=== PATIENT | female | born 1975 | race African-American/Black ===

== ENCOUNTER 2016-08-31 07:03 | Emergency (ER) | payer BC, MEDICARE ==
[~2016-08-31] VITALS: Ht 167.6 cm; Wt 72.6 kg
[~2016-08-31 07:03] MED LIST: HYDR-548 PO; OXYC-133 PO
[2016-08-31] MEDS ORDERED: IV NORMAL SALINE 1000 ML BAG IV ONE (08:15)
[2016-08-31] MEDS ORDERED: diphenhydrAMINE 50 MG/1 ML VIAL IV ONE (08:15)
[2016-08-31] MEDS ORDERED: KETOROLAC TROMETHAMINE 30 MG INJ IVP ONE (08:15)
[2016-08-31] MEDS ORDERED: METOCLOPRAMIDE HCL 10 MG/2 ML VIAL IV ONE (08:15)
[2016-08-31 08:27] LABS: BASOPHILS # (AUTO) 0.2 K/uL (0.0-8.0); BASOPHILS % (AUTO) 1.8 % (0.0-2.0); EOSINOPHILS # (AUTO) 0.1 K/uL (0.0-0.7); EOSINOPHILS % (AUTO) 0.6 % (0.0-7.0); HEMATOCRIT 39.7 % (37-47); HEMOGLOBIN 13.6 G/DL (12.0-16.0); LYMPHOCYTES # (AUTO) 1.5 K/UL (0.8-4.8); LYMPHOCYTES % (AUTO) 13.3 % (20.5-51.5); MEAN CORPUSCULAR HEMOGLOBIN 31.8 UUG (27.0-31.0); MEAN CORPUSCULAR HGB CONC 34 g/dL (32.0-37.0); MEAN CORPUSCULAR VOLUME 92.6 FL (81.0-99.0); MONOCYTES # (AUTO) 1.1 K/UL (0.1-1.30); MONOCYTES % (AUTO) 10.1 % (0.0-11.0); NEUTROPHILS # (AUTO) 8.3 K/UL (1.8-8.9); NEUTROPHILS % (AUTO) 74.2 % (38.5-71.5); PLATELET COUNT (AUTO) 308 K/UL (150-450); RED BLOOD CELL COUNT(AUTO) 4.28 MIL/UL (4.2-5.4); WHITE BLOOD COUNT (AUTO) 11.2 K/UL (4.0-11.2)
[2016-08-31 08:45] LABS: BILIRUBIN,DIRECT 0.1 mg/dL (0.0-0.2); BILIRUBIN,TOTAL 0.3 mg/dL (0.2-1.0); CREATININE 0.8 mg/dL (0.6-1.3); POTASSIUM 4.6 mmol/L (3.5-5.1); TOTAL PROTEIN, SERUM 7.9 g/dL (6.4-8.2)
--- NOTE | 2016-08-31 09:01 | NUR ---
Patient is resting comfortably on gurney while using her cellphone, NAD,pending urine specimen still
[2016-08-31] MEDS ORDERED: HYDROMORPHONE 1 MG/1 ML DISP.SYRIN IV ONE ×2 (09:30→10:45)
[2016-08-31] MEDS ORDERED: ONDANSETRON 4 MG/2 ML VIAL IV ONE (09:45)
--- NOTE | 2016-08-31 10:10 | NUR ---
Patient ambulated with steady gait to the bathroom & expressed " When will the drugs work?" Patient wants more pain medicines- MD notified.
[2016-08-31 10:18] LABS: *BILIRUBIN,URIN NEGATIVE (NEGATIVE); *BLOOD, URINE NEGATIVE (NEGATIVE); *CLARITY,URINE CLEAR (CLEAR); *COLOR,URINE YELLOW (YELLOW); *KETONES,URINE NEGATIVE (NEGATIVE); *PROTEIN,URINE NEGATIVE (NEGATIVE); LEUKOCYTE ESTERASE ,URINE NEGATIVE (NEGATIVE); NITRITE, URINE NEGATIVE (NEGATIVE); PH,URINE 7.5 (5.0-8.0); UGLUCOSE NEGATIVE (NEGATIVE)
[2016-08-31 10:29] LABS: BACTERIA,URINE FEW /HPF (NONE SEEN); SQUAMOUS EPITHELIAL CELL,UR FEW /HPF (NONE SEEN)
--- NOTE | 2016-08-31 10:54 | NUR ---
IV removed@[id number]. Catheter intact and site benign. Pressure and 4x4 gauze applied to site. No bleeding noted. Patient says that she will "uber" home. Patient discharged to home in stable conditon. Written and verbal after care instructions given to aptient with referrals to neurology & pain specialist. Patient verbalizes understanding of instructions.
--- NOTE | 2016-08-31 10:55 | NUR ---
Patient requested Amber flower MD notified.
== END 2016-08-31 11:00 | disposition home or self-care (01) ==
LOC: ER 07:03
DX: G43.909 Migraine, unspecified, not intractable, without status migrainosus (principal); R11.10 Vomiting, unspecified; R19.7 Diarrhea, unspecified; R10.9 Unspecified abdominal pain; F17.210 Nicotine dependence, cigarettes, uncomplicated; Z88.6 Allergy status to analgesic agent
CPT/HCPCS: 36415; 83690; 84703; 85025; A4663; J1170; J1200; J1885; J2405; J2765; J3490; J7030

== ENCOUNTER 2016-09-10 23:43 | Emergency (ER) | payer BC, MEDICARE ==
[~2016-09-10] VITALS: Ht 167.6 cm; Wt 77.1 kg
[2016-09-11] MEDS ORDERED: HYDROMORPHONE 1 MG/1 ML DISP.SYRIN IM ONE (00:15)
[2016-09-11] MEDS ORDERED: HYDROMORPHONE 1 MG/1 ML DISP.SYRIN ONE (00:26)
--- NOTE | 2016-09-11 00:26 | NUR ---
Patient discharged to home in stable conditon. Written and verbal after care instructions given. Patient verbalizes understanding of instructions.
[2016-09-11] MEDS ORDERED: TOPAMAX PO (16:56)
== END 2016-09-11 00:27 | disposition home or self-care (01) ==
LOC: ER 23:48
DX: S61.211A Laceration without foreign body of left index finger without damage to nail, initial encounter (principal); F10.20 Alcohol dependence, uncomplicated; F17.210 Nicotine dependence, cigarettes, uncomplicated; Z88.6 Allergy status to analgesic agent; Z90.49 Acquired absence of other specified parts of digestive tract; W26.0XXA Contact with knife, initial encounter; Y93.89 Activity, other specified; Y99.8 Other external cause status; Y92.89 Other specified places as the place of occurrence of the external cause
CPT/HCPCS: A4663; J1170

== ENCOUNTER 2016-09-11 14:51 | Inpatient (IN) | payer BC, MEDICARE ==
[~2016-09-11] VITALS: Ht 167.6 cm; Wt 76.7 kg
[2016-09-11] MEDS ORDERED: IV NORMAL SALINE 1000 ML BAG IV ONE (15:30)
[2016-09-11] MEDS ORDERED: ONDANSETRON IV *ER 4 MG/2 ML VIAL IV ONE (15:30)
[2016-09-11] MEDS ORDERED: ONDANSETRON 4 MG/2 ML VIAL ONE (15:34)
[2016-09-11 15:41] LABS: BASOPHILS % (AUTO) 0.1 % (0.0-2.0); EOSINOPHILS # (AUTO) 0.1 K/uL (0.0-0.7); EOSINOPHILS % (AUTO) 0.9 % (0.0-7.0); HEMATOCRIT 37.3 % (37-47); HEMOGLOBIN 12.8 G/DL (12.0-16.0); LYMPHOCYTES # (AUTO) 1.5 K/UL (0.8-4.8); LYMPHOCYTES % (AUTO) 10.4 % (20.5-51.5); MEAN CORPUSCULAR HEMOGLOBIN 31.6 UUG (27.0-31.0); MEAN CORPUSCULAR HGB CONC 34 g/dL (32.0-37.0); MEAN CORPUSCULAR VOLUME 92.2 FL (81.0-99.0); MONOCYTES # (AUTO) 1.4 K/UL (0.1-1.30); MONOCYTES % (AUTO) 9.5 % (0.0-11.0); NEUTROPHILS # (AUTO) 11.6 K/UL (1.8-8.9); NEUTROPHILS % (AUTO) 79.1 % (38.5-71.5); PLATELET COUNT (AUTO) 341 K/UL (150-450); RED BLOOD CELL COUNT(AUTO) 4.05 MIL/UL (4.2-5.4); WHITE BLOOD COUNT (AUTO) 14.6 K/UL (4.0-11.2)
[2016-09-11] MEDS ORDERED: HYDROMORPHONE 1 MG/1 ML DISP.SYRIN IV ONE ×2 (15:45→18:00)
[2016-09-11 15:49] LABS: POTASSIUM 4.1 mmol/L (3.5-5.1)
[2016-09-11 15:55] LABS: BILIRUBIN,DIRECT 0.1 mg/dL (0.0-0.2); BILIRUBIN,TOTAL 0.3 mg/dL (0.2-1.0)
[2016-09-11] MEDS ORDERED: HYDROMORPHONE 2 MG/1 ML DISP.SYRIN ONE (16:00)
[2016-09-11] MEDS ORDERED: IOHEXOL 300MG/ML 100 ML INFUS..BTL ONE (16:26)
[2016-09-11] MEDS ORDERED: NORMAL SALINE FLUSH 10 ML DISP.SYRIN ONE (16:26)
[2016-09-11] MEDS ORDERED: IV NORMAL SALINE 250 ML IV ONE (16:26)
[2016-09-11] MEDS ORDERED: DICYCLOMINE HCL 20 MG/2 ML AMPUL IM STA (16:31)
[2016-09-11] MEDS ORDERED: FAMOTIDINE. 20 MG/2 ML VIAL IV ONE ×2 (16:45→16:47)
[2016-09-11] MEDS ORDERED: MAG HYDROX/AL HYDROX/SIMETH 30 ML LIQUID UDC PO ONE (16:45)
[2016-09-11] MEDS ORDERED: PANTOPRAZOLE SODIUM 40 MG VIAL IV ONE (16:45)
[2016-09-11] MEDS ORDERED: PANTOPRAZOLE SODIUM 40 MG VIAL ONE (16:47)
[2016-09-11] MEDS ORDERED: MAG HYDROX/AL HYDROX/SIMETH 30 ML LIQUID UDC ONE (16:47)
[2016-09-11] MEDS ORDERED: TOPAMAX PO (16:56)
[2016-09-11] MEDS ORDERED: HALOPERIDOL LACTATE 5 MG/1 ML VIAL IV ONE ×2 (17:00→18:30)
[2016-09-11] MEDS ORDERED: HALOPERIDOL LACTATE 5 MG/1 ML VIAL ONE ×2 (17:05→18:32)
--- NOTE | 2016-09-11 17:48 | NUR ---
BELONGIGN LIST MADE. PT GUILLE THAT LATER HER FAMILY MEMBER IS COMING AND WILL BE TAKING THE PT BAG WITH ITS BELONGING HOME.
--- NOTE | 2016-09-11 18:00 | NUR ---
CHRISTINE MONTOYA AT BEDSIDE.
[2016-09-11] MEDS ORDERED: HYDROMORPHONE 1 MG/1 ML DISP.SYRIN ONE (18:14)
[2016-09-11] MEDS ORDERED: OXYCODONE/APAP 5-325 MG TABLET PO ONE (18:30)
--- NOTE | 2016-09-11 18:34 | NUR ---
PT TRANSFERED TO FLOOR IN STABLE CONDITION
--- NOTE | 2016-09-11 18:37 | NUR ---
WHILE IN ER, PT CONSTANTLY ASKING FOR PAIN MEDICATION, AWARE.
[2016-09-11 18:45] VITALS: BP 91/64
--- NOTE | 2016-09-11 19:30 | NUR ---
PATIENT IN BED, SLEEPING AT THIS TIME BUT AROUSABLE. DAUGHTER AT BEDSIDE. NO ACUTE DISTRESS NOTED. NEEDS ATTENDED. CALL LIGHT WITHIN REACH. WILL CONTINUE TO MONITOR
[2016-09-11] MEDS ORDERED: ACETAMINOPHEN 650 MG SUPP.RECT RC PRN (19:45)
[2016-09-11] MEDS ORDERED: LORAZEPAM 2 MG/1 ML VIAL IV PRN (19:45)
[2016-09-11 20:00] VITALS: BP 97/62
--- NOTE | 2016-09-11 20:30 | NUR ---
ALERT BUT SLEEPY, ABLE TO ANSWER QUESTIONS, ABLE TO PROVIDE HISTORY. BODY ASSESSMENT DONE. WILL CONTINUE TO MONITOR
[2016-09-11] MEDS: PIPERACILLIN/TAZOBACTAM/D5W 3.375 G in PREMIXED 1 EACH IV SCH ×2 (21:03→23:04)
[2016-09-11] MEDS: HYDROMORPHONE 1 MG/1 ML DISP.SYRIN IV PRN (21:04)
[2016-09-11] MEDS: IV D5/ 0.9% NACL 1,000 ML IV PRN (21:04)
[2016-09-11] MEDS: ONDANSETRON 4 MG/2 ML VIAL IV PRN (21:04)
[2016-09-12] MEDS: HYDROMORPHONE 1 MG/1 ML DISP.SYRIN IV PRN ×2 (05:22→08:32)
[2016-09-12] MEDS: ONDANSETRON 4 MG/2 ML VIAL IV PRN (06:09)
[2016-09-12] MEDS: PIPERACILLIN/TAZOBACTAM/D5W 3.375 G in PREMIXED 1 EACH IV SCH ×2 (06:09→13:14)
[2016-09-12 06:18] VITALS: BP 85/51
[2016-09-12] MEDS ORDERED: IV NORMAL SALINE 500 ML IV ONE (06:30)
--- NOTE | 2016-09-12 06:39 | NUR ---
NOTED LOW BP OF 85/51. LOWER EXTREMITIES ELEVATED. MD MADE AWARE WITH ORDERS. PAIN CONTROLLED WITH MEDICATION ORDERED. NEEDS ATTENDED. CALL LIGHT WITHIN REACH
[2016-09-12 06:57] LABS: BASOPHILS % (AUTO) 0.1 % (0.0-2.0); EOSINOPHILS # (AUTO) 0.2 K/uL (0.0-0.7); EOSINOPHILS % (AUTO) 3.4 % (0.0-7.0); HEMATOCRIT 34.6 % (37-47); HEMOGLOBIN 11.8 G/DL (12.0-16.0); LYMPHOCYTES # (AUTO) 1.1 K/UL (0.8-4.8); LYMPHOCYTES % (AUTO) 16.2 % (20.5-51.5); MEAN CORPUSCULAR HEMOGLOBIN 31.6 UUG (27.0-31.0); MEAN CORPUSCULAR HGB CONC 34 g/dL (32.0-37.0); MEAN CORPUSCULAR VOLUME 92.9 FL (81.0-99.0); MONOCYTES # (AUTO) 0.7 K/UL (0.1-1.30); MONOCYTES % (AUTO) 9.5 % (0.0-11.0); NEUTROPHILS # (AUTO) 4.9 K/UL (1.8-8.9); NEUTROPHILS % (AUTO) 70.8 % (38.5-71.5); PLATELET COUNT (AUTO) 293 K/UL (150-450); RED BLOOD CELL COUNT(AUTO) 3.72 MIL/UL (4.2-5.4)
[2016-09-12 07:15] LABS: WHITE BLOOD COUNT (AUTO) 6.9 K/UL (4.0-11.2)
[2016-09-12 07:26] LABS: CREATININE 0.7 mg/dL (0.6-1.3); MAGNESIUM 2.4 mg/dL (1.8-2.4); PHOSPHOROUS 3.9 mg/dL (2.5-4.9); POTASSIUM 3.6 mmol/L (3.5-5.1); TOTAL PROTEIN, SERUM 6.3 g/dL (6.4-8.2)
[2016-09-12 07:33] LABS: *BILIRUBIN,URIN NEGATIVE (NEGATIVE); *BLOOD, URINE NEGATIVE (NEGATIVE); *CLARITY,URINE CLEAR (CLEAR); *COLOR,URINE YELLOW (YELLOW); *KETONES,URINE NEGATIVE (NEGATIVE); *PROTEIN,URINE NEGATIVE (NEGATIVE); *UROBILINOGEN,URINE 0.2 E.U./dl (NORMAL); LEUKOCYTE ESTERASE ,URINE NEGATIVE (NEGATIVE); NITRITE, URINE NEGATIVE (NEGATIVE); UGLUCOSE NEGATIVE (NEGATIVE)
[2016-09-12 08:27] VITALS: BP 94/56
[2016-09-12 08:31] LABS: BACTERIA,URINE NONE SEEN /HPF (NONE SEEN); RBC,URINE 0-3 /HPF (0-3); WBC,URINE NONE SEEN /HPF (0-3)
[2016-09-12 08:32] LABS: SQUAMOUS EPITHELIAL CELL,UR FEW /HPF (NONE SEEN)
[2016-09-12] MEDS ORDERED: PANTOPRAZOLE SODIUM 40 MG VIAL IV SCH (09:00)
[2016-09-12] MEDS: IV D5/ 0.9% NACL 1,000 ML IV PRN (11:37)
[2016-09-12 12:04] VITALS: BP 86/50
[2016-09-12 13:18] VITALS: BP 88/59
--- NOTE | 2016-09-12 13:22 | NUR ---
AWARE OF LOW BP. NEW PARAMETERS FOR GIVING DILAUDID; SBP >100. PT. APPEARS CALM AND QUIET AND SLEEPING ALL OF SHIFT. OOB TO BR WITH STEADY GAIT. SHE C/O BURNING/SHARP PAIN IN MID ABDOMEN BUT STATES SHE IS FEELING VERY HUNGRY. SHE REQUESTS FOOD. WILL NOTIFY MD. Addendum: 09/12/16 at 1334 by DONTA JASON RN CORRECT ERROR NEW PARAMETERS FOR GIVING DILAUDID; SBP >90.
[2016-09-12] MEDS ORDERED: HYDROMORPHONE 1 MG/1 ML DISP.SYRIN IV PRN (13:45)
[2016-09-12 14:46] VITALS: BP 93/54
--- NOTE | 2016-09-12 15:16 | NUR ---
PT. HAD A CUP OF PUDDING, JELLO AND CRANBERRY JUICE. SHE STATED SHE ATE TOO FAST AND THEREFORE HAD A SMALL AMOUNT OF EMESIS AND SOME NAUSEA. NOW FEELING BETTER. DILAUDID GIVEN PER MAR. BP > 90. SHE ALSO ASKED IF SHE POTENTIALLY COULD GO HOME TODAY. WILL FOLLOW WITH .
[2016-09-12 16:02] VITALS: BP 92/43
--- NOTE | 2016-09-12 17:31 | NUR ---
PT. NOTIFIED OF DISCHARGE PAPERS READY. PT. STATES ABD 05/17. PT. STATES NECK PAIN AND HEAD ACHE IS GONE. SHE TOLERATED DINNER.
--- NOTE | 2016-09-12 17:55 | NUR ---
PT GIVEN DISCHARGE INSTRUCTIONS AND VERBALIZED UNDERSTANDING. PT. HAS ALL BELONGNIGS- CHECKED WITH FAMILY. PT. AMBULATED OFF UNIT TO HER CAR AND REFUSED ESCORT.
== END 2016-09-12 17:55 | disposition home or self-care (01) | DRG 392 ==
LOC: ER 14:58 → MED 18:24
PROVIDERS: ADMIT Internal Medicine; ATTEND Internal Medicine
DX: A08.4 Viral intestinal infection, unspecified (principal); G89.4 Chronic pain syndrome; D64.9 Anemia, unspecified; E66.9 Obesity, unspecified; F31.9 Bipolar disorder, unspecified; J45.909 Unspecified asthma, uncomplicated; Z79.891 Long term (current) use of opiate analgesic; Z98.84 Bariatric surgery status; F17.200 Nicotine dependence, unspecified, uncomplicated; K29.70 Gastritis, unspecified, without bleeding; R51 Headache; Z90.49 Acquired absence of other specified parts of digestive tract; Z88.5 Allergy status to narcotic agent; F41.9 Anxiety disorder, unspecified; K21.9 Gastro-esophageal reflux disease without esophagitis
CPT/HCPCS: 36415; 83550; 83605; 83690; 83735; 84100; 84703; 85025; 86140; 87086; C9113; J0500; J1170; J1630; J2405; J2543; J3490; J7040; J7042; J7050; Q9967

== ENCOUNTER 2017-03-03 23:41 | Emergency (ER) | payer BC, MEDICARE ==
[~2017-03-03] VITALS: Ht 170.2 cm; Wt 89.8 kg
[~2017-03-03 23:41] MED LIST changes: +TOPAMAX PO
[2017-03-04] MEDS ORDERED: ONDANSETRON 4 MG/2 ML VIAL IV ONE (00:30)
[2017-03-04] MEDS ORDERED: IV NORMAL SALINE 1000 ML BAG IV ONE (00:30)
[2017-03-04] MEDS ORDERED: CEFTRIAXONE 1 G in IV DEXTROSE 5% 50 ML IV ONE (00:30)
[2017-03-04] MEDS ORDERED: METOCLOPRAMIDE HCL 10 MG/2 ML VIAL IV ONE (00:30)
[2017-03-04 00:50] LABS: BASOPHILS % (AUTO) 0.7 % (0.0-2.0); EOSINOPHILS # (AUTO) 0.1 K/uL (0.0-0.7); EOSINOPHILS % (AUTO) 2.2 % (0.0-7.0); HEMATOCRIT 38.4 % (31.2-41.9); HEMOGLOBIN 13.2 g/dL (10.9-14.3); LYMPHOCYTES # (AUTO) 1.7 K/uL (20.0-40.0); LYMPHOCYTES % (AUTO) 30.4 % (20.5-51.5); MEAN CORPUSCULAR HEMOGLOBIN 32.1 uug (24.7-32.8); MEAN CORPUSCULAR HGB CONC 34 g/dL (32.3-35.6); MEAN CORPUSCULAR VOLUME 93.4 fL (75.5-95.3); MONOCYTES # (AUTO) 0.6 K/uL (2.0-10.0); MONOCYTES % (AUTO) 9.9 % (0.0-11.0); NEUTROPHILS # (AUTO) 3.2 K/uL (1.8-8.9); NEUTROPHILS % (AUTO) 56.8 % (38.5-71.5); PLATELET COUNT (AUTO) 302 K/uL (179-408); RED BLOOD CELL COUNT(AUTO) 4.11 MIL/uL (3.63-4.92); WHITE BLOOD COUNT (AUTO) 5.6 K/uL (3.8-11.8)
[2017-03-04] MEDS ORDERED: ONDANSETRON 4 MG/2 ML VIAL ONE (00:52)
[2017-03-04] MEDS ORDERED: METOCLOPRAMIDE HCL 10 MG/2 ML VIAL ONE (00:52)
[2017-03-04] MEDS ORDERED: CEFTRIAXONE 1 G VIAL ONE (00:52)
[2017-03-04 00:53] LABS: CREATININE 0.8 mg/dL (0.6-1.3); POTASSIUM 3.6 mmol/L (3.5-5.1)
[2017-03-04 00:59] LABS: BILIRUBIN,DIRECT 0.1 mg/dL (0.0-0.2); BILIRUBIN,TOTAL 0.3 mg/dL (0.2-1.0); TOTAL PROTEIN, SERUM 7.3 g/dL (6.4-8.2)
[2017-03-04] MEDS ORDERED: DICYCLOMINE HCL 10 MG/5 ML UDC LIQ PO ONE (01:45)
[2017-03-04] MEDS ORDERED: OXYCODONE/APAP 5-325 MG TABLET PO ONE (01:45)
[2017-03-04] MEDS ORDERED: DICYCLOMINE HCL 10 MG/5 ML UDC LIQ ONE ×2 (01:49)
[2017-03-04] MEDS ORDERED: OXYCODONE/APAP 5-325 MG TABLET ONE (01:57)
[2017-03-04 01:58] VITALS: BP 122/78
--- NOTE | 2017-03-04 01:58 | NUR ---
Patient discharged to home in stable conditon. Written and verbal after care instructions given. Patient verbalizes understanding of instructions.
== END 2017-03-04 01:59 | disposition home or self-care (01) ==
LOC: ER 23:41
DX: G89.29 Other chronic pain (principal); R11.2 Nausea with vomiting, unspecified; F17.200 Nicotine dependence, unspecified, uncomplicated; R10.13 Epigastric pain; R19.7 Diarrhea, unspecified; Z98.84 Bariatric surgery status; Z90.49 Acquired absence of other specified parts of digestive tract
CPT/HCPCS: 36415; 74022; 80048; 80076; 83690; 84703; 85025; 93005; 96365; 96375; 99285; 99406; A4663 ×2; J0696; J2405; J2765; J7030; J7060

== ENCOUNTER 2018-09-27 21:38 | Emergency (ER) | payer BC, MEDICARE ==
[~2018-09-27] VITALS: Ht 167.6 cm; Wt 90.7 kg
[~2018-09-27 21:38] MED LIST changes: +HYDR-4354 PO; -HYDR-548 PO
[2018-09-27] MEDS ORDERED: ONDA8TAB6 PO (22:06)
[2018-09-27 22:26] LABS: *BILIRUBIN,URIN NEGATIVE (NEGATIVE); *BLOOD, URINE NEGATIVE (NEGATIVE); *CLARITY,URINE HAZY (CLEAR); *COLOR,URINE YELLOW (YELLOW); *KETONES,URINE NEGATIVE (NEGATIVE); *UROBILINOGEN,URINE 0.2 E.U./dl (NORMAL); LEUKOCYTE ESTERASE ,URINE NEGATIVE (NEGATIVE); NITRITE, URINE NEGATIVE (NEGATIVE); UGLUCOSE NEGATIVE (NEGATIVE)
[2018-09-27] MEDS ORDERED: ONDANSETRON 4 MG/2 ML VIAL IV ONE (22:45)
[2018-09-27] MEDS ORDERED: HYDROMORPHONE 1 MG/1 ML DISP.SYRIN IV ONE (22:45)
[2018-09-27] MEDS ORDERED: IV NORMAL SALINE 1000 ML BAG IV ONE (22:45)
[2018-09-27 22:51] LABS: BACTERIA,URINE FEW /HPF (NONE SEEN); RBC,URINE 0-3 /HPF (0-3); SQUAMOUS EPITHELIAL CELL,UR FEW /HPF (NONE SEEN); URINE AMORPHOUS URATE MODERATE /HPF; WBC,URINE 0-3 /HPF (0-3)
[2018-09-27] MEDS ORDERED: HYDROMORPHONE 1 MG/1 ML DISP.SYRIN ONE (22:53)
[2018-09-27] MEDS ORDERED: ONDANSETRON 4 MG/2 ML VIAL ONE ×2 (22:53→23:42)
[2018-09-27 22:54] LABS: BASOPHILS % (AUTO) 0.7 % (0.0-2.0); EOSINOPHILS # (AUTO) 0.1 K/uL (0.0-0.7); HEMATOCRIT 37.6 % (31.2-41.9); HEMOGLOBIN 12.6 g/dL (10.9-14.3); LYMPHOCYTES # (AUTO) 1.5 K/uL (20.0-40.0); LYMPHOCYTES % (AUTO) 24.1 % (20.5-51.5); MEAN CORPUSCULAR HEMOGLOBIN 28.5 uug (24.7-32.8); MEAN CORPUSCULAR HGB CONC 33 g/dL (32.3-35.6); MEAN CORPUSCULAR VOLUME 85.3 fL (75.5-95.3); MONOCYTES # (AUTO) 0.6 K/uL (2.0-10.0); MONOCYTES % (AUTO) 9.8 % (0.0-11.0); NEUTROPHILS # (AUTO) 3.9 K/uL (1.8-8.9); NEUTROPHILS % (AUTO) 64.4 % (38.5-71.5); PLATELET COUNT (AUTO) 271 K/uL (179-408); RED BLOOD CELL COUNT(AUTO) 4.41 MIL/uL (3.63-4.92)
[2018-09-27 22:55] LABS: CARBON DIOXIDE 23 mmol/L (21-32); CHLORIDE 109 mmol/L (98-107); CREATININE 0.8 mg/dL (0.6-1.3); GLUCOSE 104 mg/dL (74-106); POTASSIUM 4.5 mmol/L (3.5-5.1); UREA NITROGEN, BLOOD 17 mg/dL (7-18)
[2018-09-27 23:00] LABS: ALANINE AMINOTRANSFERASE 17 U/L (14-59); ALKALINE PHOSPHATASE 67 U/L (50-136); ASPARTATE AMINOTRANSFERASE 8 U/L (15-37); BILIRUBIN,DIRECT 0.1 mg/dL (0.0-0.2); BILIRUBIN,TOTAL 0.3 mg/dL (0.2-1.0); LIPASE 253 U/L (73-393); TOTAL PROTEIN, SERUM 7.8 g/dL (6.4-8.2)
[2018-09-27] MEDS ORDERED: ONDANSETRON IV *ER 4 MG/2 ML VIAL IV ONE (23:45)
--- NOTE | 2018-09-28 | NUR ---
PATIENT RESTING IN ROOM WITH NO DISTRESS NOTED
--- NOTE | 2018-09-28 00:10 | NUR ---
IV removed. Catheter intact and site benign. Pressure and 4x4 gauze applied to site. No bleeding noted.
--- NOTE | 2018-09-28 00:30 | NUR ---
CALLED [facility]. WAITING FOR CT SCAN RESULT
--- NOTE | 2018-09-28 00:59 | NUR ---
Patient discharged to home in stable conditon. Written and verbal after care instructions given. Patient verbalizes understanding of instructions.WALKED OUT OF ER WITH NO DISTRESS NOTED
[2018-09-28 01:00] VITALS: BP 135/77
== END 2018-09-28 01:01 | disposition home or self-care (01) ==
LOC: ER 21:38
DX: A08.4 Viral intestinal infection, unspecified (principal); F17.200 Nicotine dependence, unspecified, uncomplicated; Z90.49 Acquired absence of other specified parts of digestive tract; Z88.5 Allergy status to narcotic agent; Z79.899 Other long term (current) drug therapy
CPT/HCPCS: 36415; 74176; 80048; 80076; 81000; 81001; 83690; 84702; 85025; 87086; 96361; 96374; 96375; 96376; 99284; J1170; J2405 ×2; A4663; J7030

== ENCOUNTER 2018-11-29 22:38 | Emergency (ER) | payer MEDICARE, OTHER ==
[~2018-11-29] VITALS: Ht 167.6 cm; Wt 81.6 kg
[~2018-11-29 22:38] MED LIST changes: +ONDA8TAB6 PO
[2018-11-29 23:07] LABS: BASOPHILS # (AUTO) 0.1 K/uL (0.0-8.0); EOSINOPHILS # (AUTO) 0.2 K/uL (0.0-0.7); EOSINOPHILS % (AUTO) 3.8 % (0.0-7.0); HEMATOCRIT 35.2 % (31.2-41.9); HEMOGLOBIN 11.5 g/dL (10.9-14.3); LYMPHOCYTES # (AUTO) 1.7 K/uL (20.0-40.0); LYMPHOCYTES % (AUTO) 28.6 % (20.5-51.5); MEAN CORPUSCULAR HEMOGLOBIN 29.8 uug (24.7-32.8); MEAN CORPUSCULAR HGB CONC 33 g/dL (32.3-35.6); MEAN CORPUSCULAR VOLUME 91.4 fL (75.5-95.3); MONOCYTES # (AUTO) 0.7 K/uL (2.0-10.0); MONOCYTES % (AUTO) 11.4 % (0.0-11.0); NEUTROPHILS # (AUTO) 3.4 K/uL (1.8-8.9); NEUTROPHILS % (AUTO) 55.2 % (38.5-71.5); PLATELET COUNT (AUTO) 354 K/uL (179-408); RED BLOOD CELL COUNT(AUTO) 3.85 MIL/uL (3.63-4.92); WHITE BLOOD COUNT (AUTO) 6.1 K/uL (3.8-11.8)
--- NOTE | 2018-11-29 23:17 | NUR ---
Pt states she had her gallbladder removed 10 years ago.
[2018-11-29 23:18] LABS: CREATININE 0.8 mg/dL (0.6-1.3); POTASSIUM 3.7 mmol/L (3.5-5.1)
[2018-11-29] MEDS: HYDROMORPHONE 1 MG/1 ML DISP.SYRIN IM ONE (23:33)
[2018-11-29 23:34] LABS: BILIRUBIN,DIRECT 0.1 mg/dL (0.0-0.2); BILIRUBIN,TOTAL 0.2 mg/dL (0.2-1.0); TOTAL PROTEIN, SERUM 6.8 g/dL (6.4-8.2)
[2018-11-29] MEDS ORDERED: HYDROMORPHONE 1 MG/1 ML DISP.SYRIN ONE (23:35)
[2018-11-30] MEDS ORDERED: IV NORMAL SALINE 250 ML IV ONE (00:40)
[2018-11-30] MEDS ORDERED: SWABABLE VALVE TRANSFER SET EA MC ONE (00:40)
[2018-11-30] MEDS ORDERED: IOHEXOL 350 100 ML INFUS..BTL ONE (00:40)
--- NOTE | 2018-11-30 01:07 | NUR ---
Pt went down to radiology dept for CTA. Consent signed by pt. Pt appears in no apparent distress. at bedside.
--- NOTE | 2018-11-30 03:02 | NUR ---
IV removed. Catheter intact and site benign. Pressure and 4x4 gauze applied to site. No bleeding noted.
--- NOTE | 2018-11-30 03:05 | NUR ---
Patient discharged to home in stable conditon. Written and verbal after care instructions given. Patient verbalizes understanding of instructions. Pt walked out of ER in stable gait with who will drive pt home. Pt appears in no apparent distress. Vital signs stable. Respirations even + unlabored.
[2018-11-30 03:06] VITALS: BP 109/66
== END 2018-11-30 03:06 | disposition home or self-care (01) ==
LOC: ER 22:38
DX: R07.89 Other chest pain (principal); R10.10 Upper abdominal pain, unspecified; F17.210 Nicotine dependence, cigarettes, uncomplicated; Z90.49 Acquired absence of other specified parts of digestive tract; Z88.5 Allergy status to narcotic agent; Z79.899 Other long term (current) drug therapy
CPT/HCPCS: 36415 ×2; 71045; 71275; 80048; 80076; 83690; 84484 ×2; 85025; 85379; 93005; 96372; 99284; J1170; Q9967; 70030-TC; A4663; J7050

== ENCOUNTER 2019-05-15 06:39 | Emergency (ER) | payer OTHER, MEDICARE ==
[~2019-05-15] VITALS: Ht 165.1 cm; Wt 86.2 kg
--- NOTE | 2019-05-15 07:41 | NUR ---
Patient said that she will use Uber ride to go home.
[2019-05-15] MEDS ORDERED: HYDROMORPHONE 1 MG/1 ML DISP.SYRIN IM ONE (07:45)
[2019-05-15] MEDS ORDERED: ONDANSETRON 4 MG/2 ML VIAL IM ONE (07:45)
--- NOTE | 2019-05-15 07:45 | NUR ---
Patient insists to have the IM injection while standing up. I explained to patient that this injection must be given on a gurney in a prone or side lying position to help protect her sciatic nerve.
[2019-05-15] MEDS ORDERED: HYDROMORPHONE 1 MG/1 ML DISP.SYRIN ONE (07:48)
[2019-05-15] MEDS ORDERED: ONDANSETRON 4 MG/2 ML VIAL ONE (07:48)
--- NOTE | 2019-05-15 08:32 | NUR ---
Patient discharged to home in stable condition and steady gait. Written and verbal after care instructions given to patient. Patient verbalized understanding & compliance of instructions.
== END 2019-05-15 08:33 | disposition home or self-care (01) ==
LOC: ER 06:39
DX: M25.512 Pain in left shoulder (principal); F17.200 Nicotine dependence, unspecified, uncomplicated; Z90.49 Acquired absence of other specified parts of digestive tract; Z60.2 Problems related to living alone; Z88.5 Allergy status to narcotic agent; Z79.899 Other long term (current) drug therapy
CPT/HCPCS: 73030; 96372 ×2; 99284; J1170; J2405; A4663

== ENCOUNTER 2025-02-23 18:27 | Emergency (ER) | payer BC, MEDICARE ==
[~2025-02-23] VITALS: Ht 170.2 cm; Wt 81.6 kg
[2025-02-23] MEDS ORDERED: LOPERAMIDE HCL 2 MG CAPSULE ONE (19:01)
[2025-02-23] MEDS: LOPERAMIDE HCL 2 MG CAPSULE PO ONE (19:02)
[2025-02-23] MEDS ORDERED: DICYCLOMINE HCL 20 MG TABLET PO STA (19:03)
[2025-02-23] MEDS ORDERED: DICYCLOMINE HCL LIQ 10 MG/5 ML UDC ONE ×2 (19:10→21:59)
[2025-02-23] MEDS ORDERED: LOPERAMIDE HCL 2 MG CAPSULE PO ONE (19:15)
[2025-02-23] MEDS: ONDANSETRON ODT 4 MG TAB.RAPDIS SL ONE (19:19)
[2025-02-23] MEDS: DICYCLOMINE HCL 10 MG CAPSULE PO STA (19:19)
[2025-02-23 19:22] LABS: PLATELET COUNT (AUTO) 324 K/uL (179-408); RED BLOOD CELL COUNT(AUTO) 4.23 MIL/uL (3.63-4.92); RED CELL DISTRIBUTION WIDTH 14.2 % (12.3-17.7); WHITE BLOOD COUNT (AUTO) 9.0 K/uL (3.8-11.8)
[2025-02-23] MEDS: FAMOTIDINE 20 MG TABLET PO ONE (19:23)
[2025-02-23 19:27] LABS: *BILIRUBIN,URIN NEGATIVE (NEGATIVE); *BLOOD, URINE NEGATIVE (NEGATIVE); *CLARITY,URINE CLEAR (CLEAR); *COLOR,URINE YELLOW (YELLOW); *KETONES,URINE TRACE (NEGATIVE); *PROTEIN,URINE NEGATIVE (NEGATIVE); *UROBILINOGEN,URINE 0.2 E.U./dl (NORMAL); LEUKOCYTE ESTERASE ,URINE TRACE (NEGATIVE); NITRITE, URINE NEGATIVE (NEGATIVE); UGLUCOSE NEGATIVE (NEGATIVE)
[2025-02-23 19:34] LABS: CREATININE 0.6 mg/dL (0.6-1.3); SODIUM SERUM 139.0 mmol/L (136-145); UREA NITROGEN, BLOOD 17.0 mg/dL (7-18)
[2025-02-23 19:36] LABS: SQUAMOUS EPITHELIAL CELL,UR FEW /HPF (NONE SEEN)
[2025-02-23 19:40] LABS: ASPARTATE AMINOTRANSFERASE 14.0 U/L (15-37); TOTAL PROTEIN, SERUM 6.9 g/dL (6.4-8.2)
[2025-02-23 20:45] VITALS: BP 93/59
[2025-02-23] MEDS ORDERED: ONDA-243 PO (22:02)
[2025-02-23] MEDS ORDERED: DICY20TA3 PO (22:02)
[2025-02-23] MEDS: DICYCLOMINE HCL LIQ 10 MG/5 ML UDC PO STA (22:07)
[2025-02-23 22:37] VITALS: BP 105/70; O2SAT 99
[2025-02-24] MEDS ORDERED: CEPH500C2 PO (03:02)
== END 2025-02-23 22:10 | disposition home or self-care (01) ==
LOC: ER 18:27
DX: R10.9 Unspecified abdominal pain (principal); R19.7 Diarrhea, unspecified; N39.0 Urinary tract infection, site not specified; F17.200 Nicotine dependence, unspecified, uncomplicated; G89.29 Other chronic pain; K21.9 Gastro-esophageal reflux disease without esophagitis; Z87.19 Personal history of other diseases of the digestive system; Z88.5 Allergy status to narcotic agent; Z88.7 Allergy status to serum and vaccine; Z90.49 Acquired absence of other specified parts of digestive tract; Z90.710 Acquired absence of both cervix and uterus
CPT/HCPCS: 36415; 83690; 85025; 86140; 87086; A4606; A4663; Q0162